=== PATIENT | female | born 2000 | race African-American/Black ===

== ENCOUNTER 2024-12-27 00:15 | Emergency (ER) | payer OTHER, SELFPAY ==
--- NOTE | ~2024-12-27 | XR_ITS ---
CLINICAL HISTORY: Deep Laceration 2 view left forearm Comparison: None provided Findings: Two views of the left forearm demonstrate a large soft tissue laceration at the proximal medial forearm. This may extend to contact the medial surface of the ulna. No acute osseous fracture or dislocation. Radiocarpal alignment is normal. Olecranon and coronoid process are normally aligned. Capitellum and radial head are normal. No radiodense foreign objects. IMPRESSION: 1. Large left forearm laceration extending to likely contact the ulna. No osseous fracture or radiodense foreign object. This document has been electronically signed by: Jay Goldberg III, MD PHD on 12/27/2024 01:47:22
[2024-12-27 00:20] VITALS: BMI 40.7
[2024-12-27 00:40] VITALS: BP 128/65; PULSE 121; RESP 20; TEMP 37.1; O2SAT 96
[2024-12-27] MEDS: Diphth,Pertus(ACell),Tet Adult 0.5 ML SYRINGE IM (00:46)
--- OUTSIDE RECORDS SUMMARY | 2024-12-27 01:09 | XMS_ITS | Clinical Summary ---
Author Organization [facility] ity Address [address] [place] [address] Care Team Providers Care Mechanical Engineering Specialist Name Role Phone Unavailable Primary Care Provider Unavailabl e Social History Tobacco Use Types Packs/Day Years Used Date Smoking Tobacco: Never Assessed Comments Unknown Sex and Gender Information Value Date Recorded Sex Assigned at Not on file Legal Sex Female 8:38 PM EST Gender Identity Not on file Sexual Orientation Not on file Plan of Treatment Health Maintenance Due Date Last Done Comments Gonorrhea/Chlamydia Screening 2002 HPV Vaccines (1 - 3-dose series) 2017 Meningococcal B Vaccine (1 o f 2 - Standard) 2018 DTaP,Tdap,and Td Vaccines (1 - Tdap) 2021 Hepatitis B Vaccines (1 of 3 - 19+ 3-dose series) 2021 Cervical Cancer Screening: P ap Smear 2023 COVID-19 Vaccine (1 - 2023-2 5 season) 2024 Depression Screening 05/14/2024 Influenza Vaccine (#1) 2025 HIB Vaccines Aged Out No longer eligi ble based on patient's age to complete this topic Hepatitis A Vaccines Aged Out No long er eligible based on patient's age to complete this topic IPV Vaccines Aged Out No longer eligi ble based on patient's age to complete this topic MMR Vaccines Aged Out No longer eligi ble based on patient's age to complete this topic Meningococcal ACWY Vaccine Aged Out N o longer eligible based on patient's age to complete this topic Pneumococcal Vaccine: Pediat rics (0 to 5 Years) and At-Risk Patients (6 to 49 Years) Aged Out No longer eligible b ased on patient's age to complete this topic RSV Immunization Patients Un warner 20 months Aged Out No longer eligible b ased on patient's age to complete this topic Varicella Vaccines Aged Out No longer eligible based on patient's age to complete this topic
--- NOTE | 2024-12-27 01:25 | ED.WOUNDLAC ---
HPI - Wound/Laceration General Chief Complaint: Wound/Laceration Stated Complaint: left arm laceration Time Seen by Provider: 12/27/24 00:27 Source: patient Mode of arrival: ambulatory Limitations: no limitations History of Present Illness ED Provider: Bob PADILLA HPI narrative: The patient is a 24-year-old female presenting to the ED reporting just prior to arrival she suffered a deep laceration to the left forearm from a broken glass window. The patient denies distal paresthesias or impaired range of motion. The patient does not know the date of her last tetanus shot. Patient admits she was drinking alcohol tonight, denies other injury or complaint. Related Data Previous Rx's ?Medication ?Instructions ?Recorded acetaminophen 500 mg capsule 1,000 mg (2 x 500 mg) PO .q8 PRN 12/27/24 fever or pain #30 caps cephalexin 500 mg capsule 500 mg PO BID #20 caps 12/27/24 ibuprofen 600 mg tablet 600 mg PO Q8H PRN fever or pain 12/27/24 #30 tabs oxycodone 5 mg tablet 5 mg PO Q8H PRN severe pain (scale 12/27/24 score 7-10) #7 tabs Allergies Allergy/AdvReac Type Severity Reaction Status Date / Time No Known Allergies Allergy Verified 12/27/24 00:21 Review of Systems Review of Systems: Yes all other systems are reviewed and are negative PMFSH Social History Social History Advance Directives: No Physical Exam Vital Signs: Vital Signs: Last Vital Signs Temp 98.0 F 12/27/24 03:01 Pulse 107 H 12/27/24 03:01 Resp 18 12/27/24 03:01 BP 135/90 H 12/27/24 03:01 Pulse Ox 99 12/27/24 03:01 O2 Del Method Room Air 12/27/24 03:01 BMI result Body Mass Index 40.7 CONSTITUTIONAL: The patient appears non-toxic, well nourished and in no acute distress. Vital signs as documented. HEAD: Atraumatic, normocephalic. EYES: EOMs grossly intact, pupils equal, conjunctiva clear, no exudate. ENT: Nares patent, no discharge. Airway patent, no audible stridor, visible mucosa is pink and moist without noted lesions. NECK: trachea is midline, no obvious masses or gross abnormalities. CHEST: Symmetric movement, normal appearance. LUNGS: Non-labored work of breathing. CARDIAC: No evidence of hypoperfusion. ABDOMEN: Nondistended, no obvious injury. : Deferred. EXTREMITIES: There is a markedly deep, approximately 8 cm laceration invading the muscle layer noted to the proximal 3rd of the palmar surface of the left forearm, hemostasis noted. Distal CSM is intact, city solicitor strength and opposition is intact, Nile's test negative for vascular impairment, 2+ radial pulse. Moves all other extremities spontaneously without reported pain. No other obvious injury or deformity noted. NEURO: Alert and oriented x3, CN II-XII appear grossly intact. Cerebellar Functioning grossly intact. Speech clear and appropriate. SKIN: Warm, dry, color appropriate. No rashes or lesions noted. Medications Administered Discontinued Medications Generic Name Dose Route Start Last Admin Trade Name Freq PRN Reason Stop Dose Admin Acetaminophen 975 mg 12/27/24 00:33 12/27/24 00:46 Acetaminophen 325 Mg Tablet PO 12/27/24 00:34 975 mg ONCE ONE Administration Diphtheria/Tetanus/Acell Pertussis 0.5 ml 12/27/24 00:33 12/27/24 00:46 Diphth,Pertus(Acell),Tet Adult 0.5 Ml Syringe IM 12/27/24 00:34 0.5 ml .ONCE ONE Administration Ibuprofen 600 mg 12/27/24 00:33 12/27/24 00:46 Ibuprofen 600 Mg Tablet PO 12/27/24 00:34 600 mg ONCE ONE Administration Lidocaine/Epinephrine 20 ml 12/27/24 00:33 12/27/24 02:09 Lidocaine Hcl 2%/Epi 1:100,000 20 Ml Vial INFILTRATI 12/27/24 00:34 Not Given ONCE ONE Medical Decision Making Medical Decision Making MDM Narrative: 1:32 AM 12/27/2024 ([place] PADILLA): The patient is a 24-year-old female presenting to the ED for evaluation of a large deep laceration to the left forearm, hemostasis achieved prior to arrival in the ED, laceration appears to invade the muscle layer. Distal CSM intact, no evidence of arterial or nerve involvement. Patient reports cutting her forearm on glass, we will obtain x-ray to rule out retained foreign body or bony injury. Pending unremarkable x-ray patient will require extensive multilayer repair. 3:08 AM 12/27/2024 ([place] PADILLA): Patient's x-ray shows no fracture or radiopaque foreign body. The patient's laceration was repaired with deep absorbing sutures to the muscle fascia layer, and nonabsorbable sutures of the skin with good approximation. Distal CSM was intact prior to and following the procedure. Normal Nile's test and 2+ radial pulse following the procedure. Patient will be discharged with prophylactic antibiotics and pain control. Radiology Impression Discussion of test interpretation with radiology: I have reviewed the radiologist's reading. Radiologist Impression: CLINICAL HISTORY: Deep Laceration 2 view left forearm Comparison: None provided Findings: Two views of the left forearm demonstrate a large soft tissue laceration at the proximal medial forearm. This may extend to contact the medial surface of the ulna. No acute osseous fracture or dislocation. Radiocarpal alignment is normal. Olecranon and coronoid process are normally aligned. Capitellum and radial head are normal. No radiodense foreign objects. IMPRESSION: 1. Large left forearm laceration extending to likely contact the ulna. No osseous fracture or radiodense foreign object. This document has been electronically signed by: Jay Goldberg III, MD PHD on 12/27/2024 01:47:22 Procedures Laceration Laceration 1: Site: upper extremity Side (If applicable): left Size (cm): 8 Description: linear and contaminated Depth: involves muscle layer Local Anesthetic: lidocaine 1% and with epi Amount of anesthesia used (mL): 20 Pre-repair: wound explored and irrigated extensively (200cc) Skin layer closed with: nylon Size (cm): 4-0 Number of sutures: 18 Technique: simple, interrupted Muscle layer closed with: vicryl Size: 3-0 Number of sutures: 9 Technique: simple, interrupted (8) and horizontal mattress (1) Discharge Plan Discharge Clinical Impression: Laceration Patient Disposition: Home, Self-Care Instructions: Laceration (ED) Additional Instructions: Thank you for choosing [facility] Emergency Department for your care today. Your laceration today was very deep and involve the muscle layer. Thankfully there was no evidence of impaired range of motion, sensation, or blood flow to the distal portion of your arm. You had anterior sutures placed which will dissolve over time. The laceration of your skin was repaired with nonabsorbable sutures which will need to be removed in 7-10 days. Please return to the emergency department or follow-up with your primary care provider for removal of sutures. Due to the depth of your injury, and it is involvement of the muscle, we are treating you with prophylactic antibiotics, please take cephalexin as prescribed until it is finished. Please monitor the area for any redness advancing greater than 1-2 cm away from the wound, linear redness advancing towards the trunk of your body, fever over 100.4, or white/yellow milky drainage from the laceration itself. Please also monitor for blue, purple, or white discoloration of your hand, or any loss of sensation or muscle control in your hand. If any of the symptoms develop please return immediately to the emergency department for re-evaluation. Due to the depth of your laceration we recommend against lifting any items over 10 lb with your left arm until removal of the sutures. Please apply bacitracin and a clean dry dressing to the laceration twice daily for the first 2-3 days. Then, starting Sunday evening please keep the area clean and dry, but uncovered and exposed to the air to allow the laceration to dry out and heal. While it is perfectly acceptable to allow water to run over the sutures while showering, please do not swim, or submerge the laceration in standing water until the sutures are removed. You should take alternating (staggered) doses of ibuprofen 600mg and Tylenol 1000mg every 4 hours as needed for any additional pain. Please apply ice for 20 minutes every hour to reduce swelling and pain. Please stay well hydrated and get plenty of rest. If you do not have a primary care physician, please call the [facility] at [phone] to establish a new primary care physician. While waiting to establish your new primary care physician, you can call our [facility] at [phone] for non-emergency needs. Prescriptions: New acetaminophen 500 mg capsule 1,000 mg PO .q8 PRN (Reason: fever or pain) Qty: 30 0RF ibuprofen 600 mg tablet 600 mg PO Q8H PRN (Reason: fever or pain) Qty: 30 0RF oxycodone 5 mg tablet 5 mg PO Q8H PRN (Reason: severe pain (scale score 7-10)) Qty: 7 0RF Rx Instructions: Partial Fill upon patient request. cephalexin 500 mg capsule 500 mg PO BID Qty: 20 0RF Referrals: Physician,Unknown J [Primary Care Provider, Medical] Clinical Impression: Laceration Stand Alone Forms: Work/School Release Discharge Date/Time: 12/27/24 03:49 Print Language: Greek
[2024-12-27] MEDS: Lidocaine HCl 1%/Epi 1:100,000 10 ML VIAL 20 ML INFILTRATI (01:43)
[2024-12-27 03:01] VITALS: BP 135/90; PULSE 107; RESP 18; TEMP 36.7; O2SAT 99
[2024-12-27 03:47] VITALS: BP 135/90; PULSE 107; RESP 18; TEMP 36.7; O2SAT 99
== END 2024-12-27 03:49 | disposition home or self-care (01) ==
PROVIDERS: Emergency Provider Emergency Medicine
DX: S51.812A Laceration without foreign body of left forearm, initial encounter (principal); W25.XXXA Contact with sharp glass, initial encounter; Y93.9 Activity, unspecified; Y92.9 Unspecified place or not applicable; Y99.9 Unspecified external cause status
CPT/HCPCS: 12004; 73090; 90471; 90715; 99283; 99284; J2004

== ENCOUNTER → 2024-12-27 00:27 | Outpatient (BNV) | payer OTHER, SELFPAY | PROVIDERS: Emergency Provider Emergency Medicine; Visit Provider Radiology Diagnostic Radiology | DX: S51.812A Laceration without foreign body of left forearm, initial encounter (principal) | CPT/HCPCS: 73090 ==